=== PATIENT | male | born 1990 ===

== ENCOUNTER 2021-01-08 16:12 | Emergency (ER) | payer OTHER ==
[~2021-01-08] VITALS: Ht 190.5 cm; Wt 76.2 kg
== END 2021-01-08 20:34 | disposition home or self-care (01) ==
LOC: ER 16:12
DX: S80.01XA Contusion of right knee, initial encounter (principal); M25.561 Pain in right knee; X58.XXXA Exposure to other specified factors, initial encounter; Y93.02 Activity, running; Y92.488 Other paved roadways as the place of occurrence of the external cause; Y99.8 Other external cause status